=== PATIENT | female | born 2000 | race Two or more races ===

== ENCOUNTER 2021-09-13 13:44 | Emergency (ER) | payer OTHER, SELFPAY ==
[2021-09-13 13:55] VITALS: BP 96/72; PULSE 139; RESP 16; TEMP 38.5; O2SAT 100
--- NOTE | 2021-09-13 14:05 | ED.FEMALEGU ---
HPI - Female Genitourinary General Chief complaint: Urogenital-Female Stated complaint: Lower Abdominal and Pelvic Pain Time Seen by Provider: 09/13/21 14:05 Source: patient Mode of arrival: ambulatory Limitations: no limitations History of Present Illness HPI Narrative: 20-year-old female presents with complaint of pelvic pain, vaginal bleeding, smelly discharge since intercourse on September 11. Patient reports that she took the pill September 07. States that she passed something that looked like it had feet, had to cut the cord. Patient was last sexually active June 23. Had stopped taking her control that month prior to going home to [facility] due to her mother not agreeing that she was taking it. Did not have a period in July or August. Took a test when she got back from [facility] and found that that she was . Did an online appointment for the pill that was mailed to her last week. She reports that she has had fever for the past 2 to 3 days. States that when she sits that she has sharp shooting pains from her buttocks into her abdomen. All systems reviewed and negative except as noted above. Related Data Home Medications Medication Instructions Recorded Confirmed amitriptyline 50 mg tablet 50 mg PO HS 09/13/21 09/13/21 norgestrel 0.3 mg-ethinyl 1 tablet PO DAILY 09/13/21 09/13/21 estradiol 30 mcg tablet Allergies Allergy/AdvReac Type Severity Reaction Status Date / Time Penicillins AdvReac Mild Hives Verified 09/13/21 14:29 Review of Systems Review of Systems: CONSTITUTIONAL: Denies fever, chills, or sweats. EYES: Denies visual changes, redness, or discharge. ENT: Denies rhinorrhea, congestion, sore throat, or otalgia. CARDIOVASCULAR: Denies chest pain, palpitations, or edema. RESPIRATORY: Denies cough or dyspnea. GASTROINTESTINAL: Reports pelvic pain and nausea. Denies vomiting, or diarrhea. GENITOURINARY: Reports dysuria, vaginal bleeding, discharge with odor. SKIN: Denies rash or itching. MUSCULOSKELETAL: Denies back pain, joint pain, or myalgia. NEUROLOGIC: Denies headache, numbness, or weakness. PSYCHIATRIC: Denies anxiety or depression. All other systems reviewed are negative, except as documented in HPI. [facility] Comments At time of signature, agree with nursing past medical, surgical, social and family history. There is no relevant family history pertinent to the presenting complaint. Exam Narrative: GENERAL: This is a well-nourished, well-developed patient, in no apparent distress. HEAD: normocephalic, atraumatic. EYES: PERRL. Sclera clear/white. Vision is grossly intact. EARS: External ears normal NOSE: External nose normal NECK: Neck supple, non-tender without lymphadenopathy, masses or thyromegaly. CARDIOVASCULAR: Regular rate and rhythm without murmurs, gallops, or rubs. RESPIRATORY: Clear to auscultation. Breath sounds equal bilaterally. No wheezes, rales, or rhonchi. GASTROINTESTINAL: Lower ABD tenderness, nondistended. Bowel sounds are active. Pelvic exam deferred-transferring to ER for ultrasound SKIN: warm, Dry, intact with no suspicious lesions or rash, good texture and turgor. NEURO: awake, alert, and oriented to person, place and time. There were no obvious focal neurologic abnormalities. EXTREMITIES: No joint tenderness, effusion, or edema noted. Course Course Level of Care: Express Care Visit Transfer Transfered to: [place] Transportation: Other (private car) Transfer rationale: concern for retained products after taking pill at home. pt had no ultrasound prior to using pill. Last sexually active in June. Accepting physician: JANA Hernandez MDM - Female Genitourinary MDM Narrative Medical decision making narrative: UA 3+ leuks. Due to pt's symptoms, recent there is concern for retained products. Will transfer to ER for labs and ultrasound. Patient is aware of diagnosis, understands and agrees to treatment plan. Anticipato
== END 2021-09-13 14:30 | disposition short-term general hospital (02) ==
PROVIDERS: Emergency Provider Nurse Practitioner Family
DX: R10.2 Pelvic and perineal pain (principal); R50.9 Fever, unspecified
CPT/HCPCS: 81003; 99212; G0463

== ENCOUNTER 2021-09-13 14:54 | Observation (INO) | payer OTHER, SELFPAY ==
[2021-09-13] VITALS (16 sets, daily range): BP systolic 117–143; BP diastolic 70–93; PULSE 107–137; RESP 13–23; TEMP 37.3–39.5; O2SAT 98–100; BMI 31.2
--- NOTE | ~2021-09-13 | US_ITS ---
US OB <=14 wk fetus w TV 09/13/2021 18:00 Indication: Pelvic pain. Procedure: High-resolution ultrasound of the pelvis using transabdominal technique. Patient refused t ransvaginal examination. Comparison: No prior studies for comparison. Findings: Uterus measures 10.1 x 5 x 8.3 cm. Endometrium is thickened measuring 2.2 cm. No intrauteri ne gestational sac is identified. Right ovary is not visualized. Left ovary is unremarkable measuring 4.6 x 2 x 3 cm. No free fluid in the pelvis. Impression: 1: No evidence for intrauterine . Endometrial thickening measures 2.2 cm. If there is a prashanth esponding positive test, differential diagnosis includes very early intrauterine , failed and ectopic . Recommend follow-up with serial quantitative beta-hCG levels and ultrasound as clinically indicated. Reviewed, dictated and finalized at location A. Impression: 1: No evidence for intrauterine . Endometrial thickening measures 2.2 cm. If there is a corresponding positive test, differential diagnosis includes very early intrauterine , failed and ectopic pregn cuauhtemoc. Recommend follow-up with serial quantitative beta-hCG levels and ultrasou nd as clinically indicated.
--- NOTE | ~2021-09-13 | CT_ITS ---
EXAMINATION: CT abdomen pelvis w con DATE: 09/13/2021 19:12 INDICATION: Vaginal bleeding after elective TECHNIQUE: Computed tomography (CT) of the abdomen and pelvis was performed with 100 cc Omnipaque 300 intravenous contrast. The dose-length product was 868.46 mGy-cm. Automated exposure control and iter ative reconstruction technique were employed. COMPARISON: None. FINDINGS: There is right lower lobe atelectasis. No significant pleural or pericardial effusion. Hear t size normal. No significant vascular abnormality. No lymphadenopathy. Small amount of hyperdense fl uid present in the pelvis, possibly hemorrhage. Prominent parametrial vessels. Nonobstructive bowel g as pattern. No discrete walled off fluid collection to suggest abscess. The liver, spleen, pancreas, adrenal glands are unremarkable. There is patchy hypoperfusion of the ki dneys, suspicious for pyelonephritis. Gallbladder is present. No free air. Miniscule fat-containing u mbilical hernia. Fatty infiltration of the liver. IMPRESSION: 1. Patchy hypoperfusion of the kidneys, suspicious for pyelonephritis. 2: Small amount of hyperdense fluid in the pelvis, possibly hemorrhage. Reviewed, dictated and finalized at location A.
[2021-09-13 15:24] LABS: Basophils Percent Auto 0.3 % (0.2-1.2); Eosinophils Percent Auto 0.1 % (0-4.4); Hematocrit 31.4 % (37.0-47.0); Hemoglobin 9.8 g/dL (12.0-15.0); Immature Granulocyte Absolute 0.08 K/mm3 (0.00-0.031); Immature Granulocyte Percent A 0.6 % (0-0.5); Lymphocytes Absolute Auto 1.44 K/mm3 (0.9-3.2); Lymphocytes Percent Auto 10.1 % (18.3-44.2); Mean Corpuscular HGB Conc 31.2 g/dl (32-36); Mean Corpuscular Hemoglobin 26.4 pg (26-34); Mean Corpuscular Volume 84.6 fl (80-100); Mean Platelet Volume 10.4 fl (7.4-10.4); Monocytes Absolute Auto 0.9 K/mm3 (0.1-0.6); Monocytes Percent Auto 6.1 % (2.6-8.5); Neutrophils Absolute Auto 11.8 K/mm3 (1.3-6.7); Neutrophils Percent Auto 82.8 % (45.5-73.1); Platelet Count Result 296 k/mm3 (150-375); Red Blood Count 3.71 M/mm3 (4.2-5.4); White Blood Count 14.2 K/mm3 (4.5-10.0)
[2021-09-13 15:35] LABS: Lactic Acid Reflex 1.8 mmol/L (0.7-2.0)
[2021-09-13 15:36] LABS: Alanine Aminotransferase 20 U/L (6-35); Albumin Level 4.4 g/dL (3.7-5.6); Alkaline Phosphatase 74 U/L (45-116); Anion Gap 8 mmol/L (8-16); Aspartate Amino Transferase 27 U/L (14-36); Bilirubin,Total 1.3 mg/dL (0.2-1.3); Blood Urea Nitrogen 5 mg/dL (8-21); Calcium 8.7 mg/dL (8.9-10.7); Carbon Dioxide 23 mmol/L (22-30); Chloride 103 mmol/L (98-107); Estimated Glomerular Filt Rate > 60; Glucose 115 mg/dL (65-110); Lipase 29 U/L (23-300); Potassium 3.8 mmol/L (3.4-5.0); Sodium 134 mmol/L (134-143)
[2021-09-13] MEDS: SODIUM CHLORIDE 0.9% IV 1,000 ML 999 ML IV CONT ×2 (15:38→15:39)
[2021-09-13 15:40] LABS: INR 1.2; Prothrombin Time 14.3 Seconds (11.1-14.7)
[2021-09-13] MEDS: ONDANSETRON INJ 4 MG/2 ML VIAL IV PUSH (15:41)
[2021-09-13 16:03] LABS: Lactic Acid Reflex 1.3 mmol/L (0.7-2.0)
[2021-09-13 16:21] LABS: SARS-CoV-2 RNA PCR Negative
[2021-09-13 16:55] LABS: Appearance Urine Cloudy (Clear); Bilirubin Urine Negative (Negative); Blood Urine 3+ (Negative); Color Urine Yellow (Yellow); Glucose Urine UA Negative (Negative); Ketones Urine Trace mg/dL (Negative); Leukocyte Esterase Ur 2+ LEU/UL (Negative); Nitrate Urine Negative (Negative); Protein Urine 2+ mg/dL (Negative); pH Urine 8.5 (5.0-9.0)
[2021-09-13 17:07] LABS: Bacteria Urine Trace /hpf; Mucus Urine Rare /lpf; Squamous Epithelial Cell Urine Moderate /hpf (Few); WBC Urine >75 /hpf
[2021-09-13 17:08] LABS: Add Urine Microscopic? YES
--- NOTE | 2021-09-13 19:07 | PC.NURSE ---
Report received from UCHE Hernandez.
--- NOTE | 2021-09-13 19:55 | PC.NURSE ---
Dr. Novoa at bedside for pelvic exam.
--- NOTE | 2021-09-13 20:00 | ED.GENADULT ---
HPI - General Adult General Chief complaint: Abdominal Pain Stated complaint: ABDOMINAL PAIN Time Seen by Provider: 09/13/21 15:05 Source: RN notes reviewed History of Present Illness HPI narrative: Patient presents emergency department from home for abdominal pain. Patient states that her last menstrual period was at the beginning of June. She states she had used an online doctor and had been prescribed to pills . She states she had taken 1 last Monday the second and then her second dose on the . She states that following the dose on the she did pass a fetus with an umbilical cord. 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[employer] Related Data Home Medications Medication Instructions Recorded Confirmed amitriptyline 50 mg tablet 50 mg PO HS 09/13/21 09/13/21 norgestrel 0.3 mg-ethinyl 1 tablet PO DAILY 09/13/21 09/13/21 estradiol 30 mcg tablet Allergies Allergy/AdvReac Type Severity Reaction Status Date / Time Penicillins AdvReac Mild Hives Verified 09/13/21 14:29 Review of Systems Review of Systems: Gen.: D reports fever ENT: Denies congestion Respiratory: Denies shortness of breath or cough CV: Denies chest pain or palpitations GI: reports abdominal pain nausea, emesis or diarrhea see HPI Musculoskeletal: Denies back pain or muscle pain Neuro: Denies numbness, tingling, weakness or focal weakness Skin: Denies rash Except as documented, all other systems reviewed and negative [facility] Past Medical History Medical History (Updated 09/13/21 @ 20:04 by Jaleel Novoa DO) Patient denies significant medical history Social History Social History (Updated 09/13/21 @ 20:02 by Jaleel Novoa DO) Smoking status: Never smoker Exam Narrative: APPEARANCE: No acute distress, nontoxic, resting in bed HEENT: Normocephalic, atraumatic, OMM RESPIRATORY: No respiratory distress, clear to auscultation bilaterally with no rhonchi wheezing or rales CARDIOVASCULAR: RRR s murmur ABDOMINAL: Soft nondistended tender palpation left lower quadrant left upper quadrant no tenderness in right upper quadrant right lower quadrant no rebound or guarding : Normal external exam small amount of dark maroon vaginal bleeding and whitish discharge cervix is closed no cervical motion tenderness no adnexal tenderness MUSCULOSKELETAl: Moves all extremities. No clubbing, cyanosis or edema. NEURO: Awake and alert. Following commands, speech normal, no focal deficits SKIN:: Warm, dry. Normal Color PSYCHIATRIC: Normal affect/mood Course Course Emergency Course: Discussed with Dr. Moran presentation work-up agrees with admission at this time with consult to PRINCIPLE SOFTWARE ENGINEER Discussed with Dr. Cm agrees with consult at this time Discussed with patient and family results of workup and diagnosis. Discussed need for admission. Patient and family understand and agree to current treatment plan Vital Signs Vital signs: Vital Signs Temperature 103.1 F H 09/13/21 15:06 Pulse Rate 137 H 09/13/21 15:06 Respiratory Rate 23 H 09/13/21 15:06 Blood Pressure 118/70 09/13/21 15:06 Pulse Oximetry 100 09/13/21 15:06 Oxygen Delivery Room Air 09/13/21 15:06 Temperature 99.7 F H 09/13/21 19:51 Pulse Rate 109 H 09/13/21 17:32 Respiratory Rate 17 09/13/21 17:32 Blood Pressure 120/75 09/13/21 17:31 Pulse Oximetry 99 09/13/21 17:32 Oxygen Delivery Room Air 09/13/21 15:06 Medical Decision Making Vital Signs Vital Signs: Vital Signs Temperature 103.1 F H 09/13/21 15:06 Pulse Rate 137 H 09/13/21 15:06 Respiratory Rate 23 H 09/13/21 15:
--- NOTE | 2021-09-13 20:50 | PC.NURSE ---
Report to [address] [place] [address], states that bed is being cleaned and will call when it is ready.
--- NOTE | 2021-09-13 21:10 | ADMGEN ---
This patient, Cyndi Puente, was admitted to Medical Room 349-01. Patient/family oriented to hospital policies and general routines including ID bracelet, bed and alarms, visiting hours, pain management, procedures, bathroom and other care routines, personal items, smoking policy, room service/diet, and visiting hours. Information on how to activate the Rapid Response Team has been discussed. Patient/Family are encouraged to report perceived risks to care and to ask questions if they do not understand what they are told or what they should do.
[2021-09-13] MEDS: SODIUM CHLORIDE 0.9% IV 1,000 ML 125 ML IV CONT (21:32)
[2021-09-13] MEDS: HYDROcodone/acetaminophen (*CRX) 5-325 MG TABLET 1 TAB PO (22:55)
[2021-09-14] VITALS (8 sets, daily range): BP systolic 108–137; BP diastolic 57–98; PULSE 88–114; RESP 16–18; TEMP 36.9–37.3; O2SAT 98–100
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
[2021-09-14] MEDS: HYDROcodone/acetaminophen (*CRX) 5-325 MG TABLET 1 TAB PO (03:59)
--- NOTE | 2021-09-14 04:03 | PC.NURSE ---
0400 WHILE ROUNDING ON PT I NOTICED HE PULLED OUT NG
[2021-09-14] MEDS: levoFLOXacin 500 MG/D5W 100 ML 500 MG/100 ML BAG 100 MG IVPB (05:07)
[2021-09-14] MEDS: metroNIDAZOLE 500 MG/ISO 100ML 500 MG/100 ML BAG 100 MG IVPB ×3 (05:07→21:23)
[2021-09-14] MEDS: SODIUM CHLORIDE 0.9% IV 1,000 ML 125 ML IV CONT ×2 (05:09→16:43)
[2021-09-14 05:39] LABS: Basophils Percent Auto 0.2 % (0.2-1.2); Eosinophils Absolute Auto 0.1 K/mm3 (0-0.3); Eosinophils Percent Auto 0.5 % (0-4.4); Hematocrit 25.5 % (37.0-47.0); Immature Granulocyte Absolute 0.07 K/mm3 (0.00-0.031); Immature Granulocyte Percent A 0.6 % (0-0.5); Lymphocytes Absolute Auto 2.42 K/mm3 (0.9-3.2); Mean Corpuscular HGB Conc 31.4 g/dl (32-36); Mean Corpuscular Hemoglobin 26.7 pg (26-34); Mean Platelet Volume 10.1 fl (7.4-10.4); Monocytes Absolute Auto 1.1 K/mm3 (0.1-0.6); Neutrophils Absolute Auto 8.4 K/mm3 (1.3-6.7); Neutrophils Percent Auto 69.7 % (45.5-73.1); Platelet Count Result 249 k/mm3 (150-375); Red Cell Distribution Width 16.9 % (11.5-14.5); White Blood Count 12.1 K/mm3 (4.5-10.0)
[2021-09-14 05:57] LABS: Alanine Aminotransferase 14 U/L (6-35); Albumin Level 3.2 g/dL (3.7-5.6); Alkaline Phosphatase 67 U/L (45-116); Anion Gap 7 mmol/L (8-16); Aspartate Amino Transferase 18 U/L (14-36); Bilirubin,Total 0.7 mg/dL (0.2-1.3); Blood Urea Nitrogen 3 mg/dL (8-21); Calcium 7.6 mg/dL (8.9-10.7); Carbon Dioxide 19 mmol/L (22-30); Chloride 110 mmol/L (98-107); Estimated CRCL calculation 121 ml/min; Estimated Glomerular Filt Rate > 60; Glucose 111 mg/dL (65-110); Potassium 3.3 mmol/L (3.4-5.0); Sodium 136 mmol/L (134-143)
[2021-09-14] MEDS: ACETAMINOPHEN 325 MG TABLET 650 MG PO ×2 (06:00→13:42)
[2021-09-14 06:20] LABS: Beta HCG Quantitative 513.15 mIU/ML
[2021-09-14] MEDS: POTASSIUM CHLORIDE 20 MEQ TABLET 40 MEQ PO (06:33)
[2021-09-14 06:36] LABS: Iron 12 ug/dL (37-170)
[2021-09-14 06:46] LABS: Percent Iron Saturation 3 % (20-50)
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
--- NOTE | 2021-09-14 10:15 | ECG_ITS ---
Measurements Intervals [place] Rate: 89 P: 34 ME: 166 QRS: 47 QRSD: 92 T: 29 QT: 374 QTc: 456 Interpretive Statements SINUS RHYTHM BASELINE WANDER- I, II NORMAL ECG Electronically Signed On 09-14-2021 11:59:15 CDT by Elkin Knott D.O.
[2021-09-14] MEDS: POLYSACCHARIDE IRON COMPLEX 150 MG CAPSULE PO (13:42)
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
[2021-09-14] MEDS: AMITRIPTYLINE HCL 25 MG TABLET 50 MG PO (21:23)
[2021-09-15] VITALS: PULSE 81
[2021-09-15] MEDS: SODIUM CHLORIDE 0.9% IV 1,000 ML 125 ML IV CONT (01:33)
[2021-09-15 04:00] VITALS: PULSE 98
[2021-09-15] MEDS: metroNIDAZOLE 500 MG/ISO 100ML 500 MG/100 ML BAG 100 MG IVPB ×2 (04:00→13:47)
[2021-09-15 04:05] VITALS: BP 121/74; PULSE 88; RESP 18; TEMP 36.8; O2SAT 98
[2021-09-15] MEDS: levoFLOXacin 500 MG/D5W 100 ML 500 MG/100 ML BAG 100 MG IVPB (05:02)
[2021-09-15 05:29] LABS: Basophils Percent Auto 0.3 % (0.2-1.2); Eosinophils Absolute Auto 0.3 K/mm3 (0-0.3); Eosinophils Percent Auto 3.6 % (0-4.4); Hematocrit 25.1 % (37.0-47.0); Hemoglobin 7.7 g/dL (12.0-15.0); Immature Granulocyte Absolute 0.04 K/mm3 (0.00-0.031); Immature Granulocyte Percent A 0.5 % (0-0.5); Lymphocytes Absolute Auto 2.12 K/mm3 (0.9-3.2); Lymphocytes Percent Auto 27.2 % (18.3-44.2); Mean Corpuscular HGB Conc 30.7 g/dl (32-36); Mean Corpuscular Hemoglobin 26.1 pg (26-34); Mean Corpuscular Volume 85.1 fl (80-100); Mean Platelet Volume 9.9 fl (7.4-10.4); Monocytes Absolute Auto 0.7 K/mm3 (0.1-0.6); Monocytes Percent Auto 8.4 % (2.6-8.5); Neutrophils Absolute Auto 4.7 K/mm3 (1.3-6.7); Platelet Count Result 236 k/mm3 (150-375); Red Blood Count 2.95 M/mm3 (4.2-5.4); Red Cell Distribution Width 16.6 % (11.5-14.5); White Blood Count 7.8 K/mm3 (4.5-10.0)
[2021-09-15 05:45] LABS: Anion Gap 5 mmol/L (8-16); Blood Urea Nitrogen 2 mg/dL (8-21); Calcium 8.1 mg/dL (8.9-10.7); Carbon Dioxide 20 mmol/L (22-30); Chloride 113 mmol/L (98-107); Estimated CRCL calculation 158 ml/min; Estimated Glomerular Filt Rate > 60; Glucose 86 mg/dL (65-110); Potassium 3.7 mmol/L (3.4-5.0); Sodium 138 mmol/L (134-143)
[2021-09-15 08:00] VITALS: PULSE 77
--- NOTE | 2021-09-15 08:09 | WPDPN ---
Progress Note: A&P Assessment and Plan (1) Hypokalemia: Code(s): E87.6 - Hypokalemia Status: Acute Assessment and Plan: Hypokalemia- now resolved. (2) Complication following medical : Code(s): O04.80 - (Induced) termination of with unspecified complications Status: Acute (3) Anemia: Code(s): D64.9 - Anemia, unspecified Status: Acute Assessment and Plan: Discussed anemia. Pt is a vegetarian, reports chronic anemia. Reports being unable to tolerate PO Iron. Plan for Iron Sucrose today. Discussed choosing iron rich foods. Discussed using stool softeners with PO iron. (4) Miscarriage at 8 to 28 weeks gestation: Code(s): O03.9 - Complete or unspecified spontaneous without complication Status: Acute Assessment and Plan: Reports having 1 month of OCPs remaining. Discussed importance of follow up and for contraception if she does not desire and is sexually active. Resources for follow up given. Encouraged to make appointment [facility]. (5) Pyelonephritis: Code(s): N12 - Tubulo-interstitial nephritis, not specified as acute or chronic Status: Acute Assessment and Plan: Neg CVA tenderness. Afebrile. WBCs downtrending. Recommended continuing Flagyl 500mg PO BID x 7 days and Doxycycline 100mg PO BID x 7 days for infection. Subjective Date/time seen: 09/15/21 0740 Review of Systems Review of Systems: Pt sitting upright in bed. She has no complaints this morning. Exam Const: General: comfortable and no acute distress Resp: Effort & Inspection: normal respiratory effort Auscultation: clear to auscultation bilaterally Cardio: Rate: regular rate GI: GI Palp: Yes Soft to palpation : Other: No distention. Slight discomfort to palpation of lower, central abdomen. No guarding, no rebound tenderness. Skin: Other: Normal coloration for ethnicity. Neuro: Speech: normal speech Extrem: General: normal to inspection Psych: Mental Status: mental status grossly normal Affect: normal affect Objective Data Vital Signs Vital Signs: Vital Signs - 24 hr 09/14/21 12:05 09/14/21 14:48 09/14/21 15:28 Temperature 98.7 F Pulse Rate 98 95 Respiratory Rate 16 Blood Pressure 133/83 Pulse Oximetry 100 100 Oxygen Delivery Room Air 09/14/21 16:07 09/14/21 19:33 09/14/21 20:27 Temperature 98.5 F Pulse Rate 88 88 93 Respiratory Rate 16 18 Blood Pressure 137/98 H Pulse Oximetry 100 100 Oxygen Delivery Room Air 09/14/21 20:00 09/15/21 00:00 09/15/21 04:05 Temperature 98.3 F Pulse Rate 93 81 88 Respiratory Rate 18 Blood Pressure 121/74 Pulse Oximetry 98 Oxygen Delivery 09/15/21 04:00 Temperature Pulse Rate 98 Respiratory Rate Blood Pressure Pulse Oximetry Oxygen Delivery Intake/Output Intake/Output: Intake & Output 09/12/21 09/13/21 09/14/21 09/15/21 23:59 23:59 23:59 23:59 Intake Total 2150 4310 1200 Balance 2150 4310 1200 Meds/Results Medications: Active Medications Generic Name Dose Route Start Last Admin Trade Name Freq PRN Reason Stop Dose Admin Acetaminophen 650 mg 09/13/21 22:38 09/14/21 13:42 Acetaminophen 325 Mg Tablet PO 650 mg Q6H PRN Administration Mild Pain (1-3) or Fever Hydrocodone Bitart/Acetaminophen 1 tab 09/13/21 22:38 09/14/21 03:59 Hydrocodone/Acetaminophen (*Crx) 5-325 Mg Tablet PO 1 tab Q4H PRN Administration Pain Rated 4-10 Amitriptyline HCl 50 mg 09/14/21 21:00 09/14/21 21:23 Amitriptyline Hcl 25 Mg Tablet PO 50 mg HS LO Administration Sodium Chloride 1,000 mls @ 125 mls/hr 09/13/21 19:45 09/15/21 01:33 Normal Saline Iv IV CONT 125 mls/hr .Q8H LO Administration Levofloxacin/Dextrose 500 mg in 100 mls @ 100 mls/hr 09/14/21 05:00 09/15/21 06:05 Levaquin 500 Mg/D5w 100 Ml IVPB Infused Q24H LO Infusion Metronidazole 500 mg in 100 mls @
[2021-09-15] MEDS: POLYSACCHARIDE IRON COMPLEX 150 MG CAPSULE PO ×2 (08:19→16:42)
[2021-09-15] MEDS: IRON SUCROSE COMPLEX 500 MG in SODIUM CHLORIDE 0.9% IV 250 ML 78.57 MG IVPB (09:18)
[2021-09-15 12:00] VITALS: PULSE 94
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
[2021-09-15 13:59] LABS: Hematocrit 27.6 % (37.0-47.0); Hemoglobin 8.6 g/dL (12.0-15.0)
[2021-09-15 14:00] VITALS: BP 138/95; PULSE 97; RESP 18; TEMP 36.7; O2SAT 100
--- NOTE | 2021-09-15 17:51 | PM.DS ---
DS: Admitting Diagnosis Discharge Date 09/15/2021 Admitting Diagnosis abdominal pain DS: Discharge Diagnosis Discharge Diagnosis (1) Pyelonephritis: Code(s): N12 - Tubulo-interstitial nephritis, not specified as acute or chronic Status: Acute Assessment and Plan: Suspected endometritis secondary to chemical Patient has a penicillin allergy, placed on Levaquin and Flagyl for possible pyelonephritis versus endometritis versus other intra-abdominal infectious etiology, follow-up urine culturesNegative. Was not a culture came back showing group a Streptococcus. This finding was discussed with OBGYN. She will continue on doxycycline and Flagyl to complete the course and she should follow up with her in a week. (2) Miscarriage at 8 to 28 weeks gestation: Code(s): O03.9 - Complete or unspecified spontaneous without complication Status: Acute Assessment and Plan: Appreciate Ob Gyne consultation, follow hCG levels (3) Anemia: Code(s): D64.9 - Anemia, unspecified Status: Acute Assessment and Plan: IV iron given in the hospital. H&H stable Will supplement iron at discharge follow-up with PCP and OBGYN (4) Hyperkalemia: Code(s): E87.5 - Hyperkalemia Status: Acute Assessment and Plan: Replete and recheck Plan DVT prophylaxis with SCDs Full code DS: Summary Hospital Course Hospital Course: see above Time Spent with Patient Time attestation: Total time spent providing and/or coordinating discharge services: 50 minutes Exam Narrative: Patient is comfortable, NAD HEENT: eyes are clear and none icteric LUNGS: normal respiratory effort clear to auscultation bilaterally ABD: soft, nontender nondistended Lower extremities: no edema no cyanosis clubbing SKIN: nonjaundiced Neuro: grossly intact. alert and oriented x3 DS: Data Data Completed and Pending Labs on day of discharge: Labs from last 24 hours 09/15/21 09/15/21 09/15/21 13:50 05:15 05:15 WBC 7.8 RBC 2.95 L Hgb 8.6 L 7.7 L Hct 27.6 L 25.1 L MCV 85.1 MCH 26.1 MCHC 30.7 L RDW 16.6 H Plt Count 236 MPV 9.9 Immature Gran % (Auto) 0.5 Neut % (Auto) 60.0 Lymph % (Auto) 27.2 Kleberg % (Auto) 8.4 Eos % (Auto) 3.6 Baso % (Auto) 0.3 Lymph # (Auto) 2.12 Kleberg # (Auto) 0.7 H Eos # (Auto) 0.3 Baso # (Auto) 0.0 Abs Immat Gran (auto) 0.04 H Absolute Neuts (auto) 4.7 Absolute Nucleated RBC 0.0 Nucleated RBC % 0.0 Sodium 138 Potassium 3.7 Chloride 113 H Carbon Dioxide 20 L Anion Gap 5 L BUN 2 L Creatinine 0.60 L Estim Creat Clear Calc 158 Estimated GFR > 60 Glucose 86 Calcium 8.1 L Beta HCG, Quant 09/15/21 05:15 WBC RBC Hgb Hct MCV MCH MCHC RDW Plt Count MPV Immature Gran % (Auto) Neut % (Auto) Lymph % (Auto) Kleberg % (Auto) Eos % (Auto) Baso % (Auto) Lymph # (Auto) Kleberg # (Auto) Eos # (Auto) Baso # (Auto) Abs Immat Gran (auto) Absolute Neuts (auto) Absolute Nucleated RBC Nucleated RBC % Sodium Potassium Chloride Carbon Dioxide Anion Gap BUN Creatinine Estim Creat Clear Calc Estimated GFR Glucose Calcium Beta HCG, Quant 361.77 Preliminary micro results at discharge 09/13/21 15:39 Blood Culture - Preliminary Blood 09/13/21 15:39 Blood Culture - Preliminary Blood Imaging Radiologist's impression: ITS Impressions Obstetrics Ultrasound 09/13/21 18:07 Impression: 1: No evidence for intrauterine . Endometrial thickening measures 2.2 cm. If there is a corresponding positive test, differential diagnosis includes very early intrauterine , failed and ectopic . Recommend follow-up with serial quantitative beta-hCG levels and ultrasound as clinically indicated. Abdomen/Pelvis CT 09/13/21 19:19 IMPRESSION: 1. Patchy
== END 2021-09-15 18:50 | disposition home or self-care (01) ==
LOC: ANHED 20:04 → ANH3MED 20:04
PROVIDERS: Emergency Medicine; Admitting Provider Student in an Organized Health Care Education/Training Program; Emergency Provider Emergency Medicine; Visit Provider Internal Medicine
DX: N12 Tubulo-interstitial nephritis, not specified as acute or chronic (principal); R10.9 Unspecified abdominal pain; O03.9 Complete or unspecified spontaneous abortion without complication; D64.9 Anemia, unspecified; E87.5 Hyperkalemia; Z79.899 Other long term (current) drug therapy; Z20.822 Contact with and (suspected) exposure to COVID-19
CPT/HCPCS: 36415; 74177; 76801; 76817; 80048; 80053; 81001; 81003; 81025; 82728; 83540; 83550; 83605; 83690; 84702; 85014; 85018; 85025; 85610; 85730; 86850; 86900; 86901; 87040; 87070; 87086; 87088; 87147; 87491; 87591; 87808; 93005; 96361; 96365; 96366; 96367; 96368; 96375; 96376; 99285; A9270; C9803; G0378; J0131; J0696; J1756; J1956; J2405; J7030; J7050; Q9967; U0003; U0005

== ENCOUNTER 2022-01-19 12:59 | Emergency (ER) | payer OTHER, SELFPAY ==
--- NOTE | ~2022-01-19 | CT_ITS ---
EXAMINATION: CT soft tissue neck w con DATE: 01/19/2022 15:59 INDICATION: Tonsillar hypertrophy, right greater than left. TECHNIQUE: Computed tomography (CT) of the neck was performed with 75 mL Omnipaque-350 intravenous co ntrast. Automated exposure control and iterative reconstruction technique were employed. The dose-cristina gth product was 562.00 mGy-cm. COMPARISON: None FINDINGS: Orbits are normal. Mild mucosal thickening the caudal right maxillary sinus. Visualized mastoid air c ells and middle ear cavities are clear. Submandibular and parotid glands are symmetric. Thyroid gland is unremarkable. There is enlargement of the bilateral palatine tonsils, left greater than right. No discernible peritonsillar abscess. The lingual tonsils remain normal. Normal epiglottis and aryepigl ottic folds. Retropharyngeal/prevertebral soft tissues are unremarkable. Mildly enlarged likely react pablo bilateral level 2 lymph nodes which measure up to 1.3 cm in maximal short axis diameter on both t he left and right. There are scattered normal-sized lymph nodes in the neck, no lymphadenopathy. No m asses identified. The vasculature is patent and normal in caliber. Airway is unremarkable. Superior m ediastinum is unremarkable. Lung apices are normal. No osseous abnormalities. IMPRESSION: 1. Enlargement of the bilateral palatine tonsils, left greater than right. No evident peritonsillar a bscess. 2. Likely reactive bilateral level 2 cervical lymphadenopathy. Reviewed, dictated and finalized at location B. 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 Enlargement of the bilateral palatine tonsils, left greater than right. No e vident peritonsillar abscess. 2. Likely reactive bilateral level 2 cervical lymphadenopathy.
[2022-01-19 13:16] VITALS: BP 144/100; PULSE 89; RESP 16; TEMP 36.5; O2SAT 100
[2022-01-19] MEDS: methylPREDNISolone SOD SUCC 125 MG VIAL IV PUSH (14:29)
[2022-01-19 14:47] LABS: Influenza A QL RT-PCR Negative (Negative); Influenza B QL RT-PCR Negative (Negative); SARS-CoV-2 RNA PCR Negative
[2022-01-19 14:48] LABS: Basophils Absolute Auto 0.1 K/mm3 (0.0-0.1); Basophils Percent Auto 0.4 % (0.2-1.2); Eosinophils Absolute Auto 0.3 K/mm3 (0-0.3); Eosinophils Percent Auto 1.9 % (0-4.4); Hematocrit 40.3 % (37.0-47.0); Hemoglobin 12.6 g/dL (12.0-15.0); Immature Granulocyte Absolute 0.05 K/mm3 (0.00-0.031); Immature Granulocyte Percent A 0.4 % (0-0.5); Mean Corpuscular HGB Conc 31.3 g/dl (32-36); Mean Corpuscular Hemoglobin 27.8 pg (26-34); Monocytes Absolute Auto 0.6 K/mm3 (0.1-0.6); Monocytes Percent Auto 4.6 % (2.6-8.5); Neutrophils Absolute Auto 9.6 K/mm3 (1.3-6.7); Neutrophils Percent Auto 71.7 % (45.5-73.1); Platelet Count Result 320 k/mm3 (150-375); Red Blood Count 4.53 M/mm3 (4.2-5.4); Red Cell Distribution Width 14.5 % (11.5-14.5); White Blood Count 13.3 K/mm3 (4.5-10.0)
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
[2022-01-19 15:03] LABS: Alanine Aminotransferase 17 U/L (6-35); Albumin Level 4.6 g/dL (3.5-5.1); Alkaline Phosphatase 72 U/L (38-126); Anion Gap 14 mmol/L (8-16); Aspartate Amino Transferase 21 U/L (14-36); Bilirubin,Total 1.3 mg/dL (0.2-1.3); Blood Urea Nitrogen 5 mg/dL (7-17); Calcium 9.5 mg/dL (8.4-10.2); Carbon Dioxide 23 mmol/L (22-30); Chloride 101 mmol/L (98-107); Estimated CRCL calculation 139 ml/min; Estimated Glomerular Filt Rate > 60; Glucose 88 mg/dL (65-110); Sodium 138 mmol/L (137-145)
[2022-01-19 15:22] LABS: Beta HCG Quantitative < 2.39 mIU/ML
--- NOTE | 2022-01-19 15:47 | PC.NURSE ---
Patient off unit to CT.
[2022-01-19] MEDS: CLINDAMYCIN 600 MG/D5W 50 ML 600 MG/50 ML PIGGYBACK 100 MG IVPB (16:51)
== END 2022-01-19 17:46 | disposition home or self-care (01) ==
PROVIDERS: Physician Assistant; Emergency Provider Emergency Medicine
DX: J03.90 Acute tonsillitis, unspecified (principal); Z20.822 Contact with and (suspected) exposure to COVID-19
CPT/HCPCS: 36415; 70491; 80053; 84702; 85025; 87081; 87636; 87880; 96365; 96375; 99284; J2930; Q9967